=== PATIENT | male | born 1995 | race African-American/Black ===

== ENCOUNTER 2024-08-11 16:35 | Inpatient (IN) | payer OTHER, SELFPAY ==
[2024-08-11 10:47] VITALS: BP 151/94
--- NOTE | 2024-08-11 12:21 | ED.GENMED ---
History of Present Illness
General
Chief Complaint: Facial Problem
Time Seen by Provider: 08/11/24 12:11
History of Present Illness
History of Present Illness:
Patient is a 28-year-old man presenting to the emergency department with lip swelling for the past 3 days. Patient states that his right lower lip swelled up after eating shrimp noodles. Shortly after this swelling resolved. He then had chicken
noodles the next day which worsen the swelling. He went to the medical team at present and they started him on steroids and Benadryl. Since then the swelling has been worsening. He has noticed some drainage. He also notes that he had dental
surgery a week before the symptoms started appearing. He has been having some chills. No fevers. No problems speaking swallowing or changes with his speech.
Phy Exam
Physical Exam
Physical Exam:
GENERAL: in no acute distress
HEENT: normocephalic, extraocular movements intact, moist oral mucosa, dentition without any obvious hat the gums, right lower lip with significant swelling, dried fluid at the exterior lower lip, no obvious fluctuance, airway protected, no tongue
elevation
NECK: normal inspection
RESPIRATORY: no respiratory distress, clear to auscultation bilaterally
CARDIOVASCULAR: regular rate and rhythm
ABDOMEN/: soft, non-distended, non-tender to palpation, no rebound or guarding
EXTREMITIES: non-tender, no edema/swelling
NEUROLOGIC: awake and alert, moves all extremities
SKIN: warm
Course
Orders/Labs/Results
Orders:
Orders
08/11/24 12:18
CT Facial Bones W/ Iv Contrast Urgent
Comment:
Reason For Exam: right lower lip abscess
08/11/24 12:26
Basic Metabolic Panel Urgent
Complete Blood Count/With Diff Urgent
08/11/24 15:14
Ampicillin/Sulbactam 3 G [Unasyn] 3 gm 0.9% Sodium Chloride 100 ml [Nss] 100 ml IV NOW
08/11/24 15:19
Vancomycin [Vancocin] 1,500 mg 0.9% Sodium Chloride 500 ml [Nss] 500 ml IV NOW
Abnormal Lab Results
08/11/24
12:26
WBC 18.6 H 10^3/uL
(4.8-10.8)
RBC 4.11 L 10^6/uL
(4.70-6.10)
Hct 38.3 L %
(39.0-52.0)
MCH 32.8 H pg
(27.0-31.0)
RDW 10.7 L %
(11.5-14.5)
Abs Immat Gran (auto) 0.1 H 10^3/uL
(0-0.05)
Absolute Neuts (auto) 16.2 H 10^3/uL
(1.4-6.5)
Absolute Lymphs (auto) 1.1 L 10^3/uL
(1.2-3.4)
Absolute Monos (auto) 1.2 H 10^3/uL
(0.1-0.6)
Immature Gran % 0.7 H %
(0-0.5)
Neutrophils % 87.0 H %
(42.2-75.2)
Lymphocytes % 5.7 L %
(20.5-51.1)
Carbon Dioxide 31 H mmol/L
(22-30)
BUN 8 L mg/dl
(9-20)
Creatinine 0.6 L mg/dL
(0.7-1.3)
Glucose 124 H mg/dl
(70-99)
08/11/24 12:26
08/11/24 12:26
Vital Signs
Initial and Last Documented VS:
Initial Vital Signs
Temp Pulse Resp BP Pulse Ox
99.4 F 86 18 151/94 98
08/11/24 10:47 08/11/24 10:47 08/11/24 10:47 08/11/24 10:47 08/11/24 10:47
Last Documented Vital Signs
Temp Pulse Resp BP Pulse Ox
99.4 F 86 18 151/94 98
08/11/24 10:47 08/11/24 10:47 08/11/24 10:47 08/11/24 10:47 08/11/24 10:47
Procedures
Incision/Drainage/Joint Aspiration
Right Lip:
Anethesia: other (topical benzocaine)
Preparation: cleaned with alcohol wipe
Type of procedure: incise and drain
Nature of site: abscess
Description of abscess: less than 3cm
Loculations broken up: Yes
How much fluid was obtained?: small amount
Fluid description: purulent
Treatment: left open for drainage
MDM/Problems Addressed
Differential Diagnosis Includes:
Patient is a 28-year-old man presenting to the emergency department with concerns for right lower lip swelling for the past few days. On arrival patient's temperature was 99.4. On exam patient with significant swelling to the right lower lip with
some drainage. Concern for cellulitis/abscess. Dentition is intact. Will proceed with blood work and CT scan for further characterization. I did discuss with the dispensary from patient's correctional facility. They did not start him on any
antibiotics. They treated his lip swelling like an allergic reaction.
*Critical Care Note
Total Time (30-74mins, 75-104mins- exclusive of procedures): Not Applicable
Update Note
Update Note:
Labs to show leukocytosis. CT scan per my interpretation with an abscess of the right inferior lip. Per the official read there is a 2.5 x 2.2 x 1.8 cm abscess versus phlegmon with associated inflammatory changes. Given patient's white count and
the abscess we will admit patient for IV antibiotics with MRSA coverage. After discussion with patient he is amenable to drainage. Will use a needle aspiration first for best cosmetic outcomes and to avoid the vermilion border. I did attempt to
drain the abscess however only minimal fluid came out. I did convert using a scalpel with some success. It is slowly draining though not as much as expected. Will place warm compress and try to express more fluid
I discussed with hospitalist who excepted patient for admission. Also discussed with OMFS/plastic surgery for their recommendations.
On reevaluation is slowly draining. Hospitalist evaluated patient is in agreement with admission. They will follow-up with specialist for further evaluation.
ED Attending Note
-
Portions of this chart may have been created with voice recognition software.� Occasional wrong word or��sound alike� substitutions may have occurred due to the inherent limitations of voice recognition software.
Discharge Plan
Departure
Patient Disposition: Admit
Date of Disposition: 08/11/24
Time of Disposition: 15:08
Presentation/result/management discussed w/ accepting MD/DO: Hospitalist
Discharge Problem:
Infection of lip
Prescriptions:
No Action
acetaminophen [Tylenol] 325 mg Tablet
650 mg PO BIDPRN PRN (Reason: mild pain)
diphenhydramine HCl 50 mg Tablet
50 mg PO BID
thiamine HCl (vitamin B1) 100 mg Tablet
100 mg PO DAILY
hydroxyzine pamoate 50 mg Capsule
50 mg PO BID
famotidine [Pepcid] 20 mg Tablet
20 mg PO BID
prednisone 50 mg Tablet
50 mg PO DAILY
Rx Instructions:
take from 08/09/24-08/13/24
calcium carbonate [Tums] 200 mg calcium (500 mg) Tablet,Chewable
400 mg PO BIDPRN PRN (Reason: gerd)
ibuprofen [Advil] 200 mg Tablet
400 mg PO TIDPRN PRN (Reason: mild pain)
folic acid 1 mg Tablet
1 mg PO DAILY
buprenorphine HCl 8 mg Tablet, Sublingual
8 mg SUBLINGUAL DAILY
Referrals:
[facility] [Family Provider] -
Interventions
Interventions:
*Risk Screen - Suicide Last Done: 08/11/24 14:06
*General Assessment Last Done: 08/11/24 14:06
*Neglect/Abuse Screening Last Done: 08/11/24 14:06
*ED- Fall Risk Assessment Last Done: 08/11/24 14:06
*ED COVID-19 Vaccine History Last Done: 08/11/24 14:07
ED- Neurological Assessment Last Done: 08/11/24 12:37
ED-Skin Assessment Last Done: 08/11/24 12:37
Discharge Date and Time
Print Language: YI
[2024-08-11 13:00] LABS: % Basophils 0.3 % (0-2); % Immature Granulocytes 0.7 % (0-0.5); % Lymphocytes 5.7 % (20.5-51.1); % Monocytes 6.3 % (1.7-9.3); Absolute Basophils 0.1 10^3/uL (0-0.2); Absolute Immature Granulocytes 0.1 10^3/uL (0-0.05); Absolute Lymphocytes 1.1 10^3/uL (1.2-3.4); Absolute Monocytes 1.2 10^3/uL (0.1-0.6); Absolute Neutrophils 16.2 10^3/uL (1.4-6.5); Hematocrit 38.3 % (39.0-52.0); Hemoglobin 13.5 g/dL (13.0-18.0); Mean Corp Hgb Conc. 35.2 g/dL (33.0-37.0); Mean Corpuscular Hgb 32.8 pg (27.0-31.0); Mean Corpuscular Volume 93.2 fL (80.0-94.0); Nucleated Red Blood Cells % 0 % (-); Platelet Count 262 10^3/uL (130-400); Red Blood Cell Count 4.11 10^6/uL (4.70-6.10); Red Cell Dist. Width 10.7 % (11.5-14.5); White Blood Cell Count 18.6 10^3/uL (4.8-10.8)
[2024-08-11 13:07] LABS: Blood Urea Nitrogen 8 mg/dl (9-20); Calcium 9.6 mg/dl (8.4-10.2); Carbon Dioxide 31 mmol/L (22-30); Chloride 99 mmol/L (98-107); Glucose 124 mg/dl (70-99); Potassium 4.2 mmol/L (3.5-5.1); Sodium 139 mmol/L (135-145); eGFR > 60.00
[2024-08-11 15:11] VITALS: BMI 22.1
--- NOTE | 2024-08-11 15:16 | HPS.HSE ---
Family Physician
-
Family Physician: Facility [facility]
Chief Complaint
-
Lower Lip Swelling
History of Present Illness
Patient is a 28 y/o male past medical history of opioid use disorder who presents with lower lip swelling. Patient reports he had a tooth extracted from his left upper about a week ago. He reports initially doing well until he developed
significant swelling of his lower lip three days ago. He was seen by medical at the alf who started him on prednisone for possible allergic reaction. He presents today with worsening swelling of the lower lip. He reports significant sweats but
denies any fevers.
Medical History
Past Medical History
Past Medical History: Reports Other
Additional Past Medical History:
Opioid Use Disorder
Past Surgical History: Reports Other
Additional Past Surgical History:
Dental
Social History
Tobacco: Non-smoker
Alcohol: Occasional
Drug: Other (Reports opioid use prior to incarceration, no IVDA)
Living: Senior Care
Family History
Family History: Not pertinent
Allergies / Home Medications
Allergies reflects when Allergies were last updated in [employer].
Home Medications with original date entered in [employer]
Allergy/Medication List:
Allergies
Allergy/AdvReac Type Severity Reaction Status Date / Time
No Known Allergies Allergy Unverified 08/11/24 10:46
Home Medications
acetaminophen 325 mg tablet (Tylenol) 650 mg PO BIDPRN PRN mild pain 08/11/24
buprenorphine HCl 8 mg sublingual tablet 8 mg sublingual DAILY 08/11/24
calcium carbonate (Tums) 400 mg PO BIDPRN PRN gerd 08/11/24
diphenhydramine HCl 50 mg tablet 50 mg PO BID 08/11/24
famotidine 20 mg tablet (Pepcid) 20 mg PO BID 08/11/24
folic acid 1 mg tablet 1 mg PO DAILY 08/11/24
hydroxyzine pamoate 50 mg capsule 50 mg PO BID 08/11/24
ibuprofen 200 mg tablet (Advil) 400 mg PO TIDPRN PRN mild pain 08/11/24
prednisone 50 mg tablet 50 mg PO DAILY 08/11/24
thiamine HCl (vitamin B1) 100 mg tablet 100 mg PO DAILY 08/11/24
Review of Systems
-
A 12 point ROS was completed and negative except as noted: Yes
Constitutional: Reports Night Sweats
Respiratory: Denies Cough or Trouble Breathing
Cardiac: Denies Chest Pain or Palpitations
Physical Exam
Vital Signs
Vital Signs
Temp Pulse Resp BP Pulse Ox
99.4 F 86 18 151/94 98
08/11/24 10:47 08/11/24 10:47 08/11/24 10:47 08/11/24 10:47 08/11/24 10:47
Physical Exam
General: Other (Appears in pain; Diaphoresis with beads of sweat noted on the brow; Difficulty speaking due to significant lower lip swelling)
HEENT: Anicteric, Moist mucous membranes and Other (Significant lower lip swelling; Protecting airway)
Respiratory: Clear and Non Labored Respirations
Cardiac: S1/S2 and Regular Rhythm
GI: Soft and Non Tender
Rectal: Deferred by Provider
Musculoskeletal: No Clubbing, No Cyanosis and No Edema
Skin: Warm and Dry
Neuro: Awake, Alert, Oriented and Nonfocal/grossly intact
Psych: Calm
Laboratory Results
-
08/11/24 12:26
08/11/24 12:[address] Scan:
Pronounced thickening and inflammatory change involving the inferior lip with subtle area of rim enhancement within the right midline measuring 2.5 x 2.2 x 1.8 cm suspicious for abscess versus phlegmon.
Data Reviewed
-
Lab Data: Labs Reviewed by me
Impression/Plan
-
Lower Lip Infection with Abscess
-Consult Plastic Surgery
-Consult Infectious Disease
-Continue Vancomycin and Unasyn
-Continue Tylenol and Toradol prn for pain
Opioid Use Disorder
-Continue buprenorphine
DVT Proph: SCDs
Code Status: Full Code
--- NOTE | 2024-08-11 16:13 | W.PN.UPDATE ---
Update Note
Progress Note Update
This is an addendum to the H&P written by Zena Flor on 08/11/2024. Patient seen and examined independently with PA.
28-year-old male presenting from correctional facility history of Percocet use, with right lower lip swelling for the past few days with discharge. Treated as an allergic reaction with prednisone/Benadryl/Pepcid at the facility.
Labs show leukocytosis. CT facial bones shows pronounced thickening and inflammatory change involving the inferior lip with subtle area of enhancement in the right midline measuring 2.5 x 2.2 x 1.8 cm suspicious for abscess versus phlegmon. There
is moderate mucosal thickening within the left maxillary sinus. Attempted to be drained in the ER with some relief.
Vancomycin and Unasyn started. Tylenol and Toradol for pain. Plastic surgery to see him tomorrow. ID consulted.
[2024-08-11] MEDS: UNASYN IV ×2 (16:36→22:18)
[2024-08-11 16:38] VITALS: BP 150/108
[2024-08-11] MEDS: VANCOCIN 530 MG IV (18:06)
[2024-08-11 20:14] VITALS: BP 161/99; BMI 21.5
--- NOTE | 2024-08-11 20:25 | PHA.VAN.IN ---
Assessment
- Assessment
Renal Function: Unknown baseline
Concomitant Antimicrobials: UNASYN
- Previous Dosing Experience
Previous Regimen: NONE
AUC Dosing Plan
- Dosing Variables
Dosing Weight (kg): 69.8
Dosing CrCl (ml/min): 125
Vd coefficient (L/kg): 0.7
- Empiric Dosing
Initial / Loading Dose: 1500MG
Maintenance Regimen: 750MG IV Q8H
Estimated AUC (mcg*h/mL): 449
Estimated Peak (mcg*h/mL): 26.5
Estimated Trough (mcg/ml): 12.4
Estimated Half Life (H): 6.4
Pharmacokinetics Vancomycin I
- -
Patient Age: 28
Patient Sex: Male
Vancomycin Day #: 1
Indication: Other (LOWER LIP INFECTION WITH ABSCESS)
Requesting Provider: SUKHDEV
Height / Weight:
Height 5 ft 10 in
Actual Weight 67.812 kg
Pertinent Past Medical History: OPIOD USE DISORDER
- Vital Signs / Lab Results
Temp Pulse Resp BP Pulse Ox
97.8 F 90 18 161/99 99
08/11/24 20:14 08/11/24 20:14 08/11/24 20:14 08/11/24 20:14 08/11/24 20:14
Lab Results - Hematology
08/11/24
12:26
WBC 18.6 H
Lab Results - Chemistry
08/11/24
12:26
BUN 8 L
Creatinine 0.6 L
[2024-08-11] MEDS: TORADOL 30 MG IV (22:17)
[2024-08-11] MEDS: NSS 1000 IV (22:18)
[2024-08-11] MEDS: ATARAX 50 MG PO (22:18)
[2024-08-11] MEDS: PEPCID 20 MG PO (22:19)
[2024-08-11 23:05] VITALS: BP 150/72
[2024-08-12] MEDS: UNASYN IV ×2 (03:42→10:29)
[2024-08-12] MEDS: VANCOCIN 150 IV ×3 (05:43→20:51)
[2024-08-12 07:33] VITALS: BP 168/112
[2024-08-12 08:05] LABS: Hematocrit 36.5 % (39.0-52.0); Hemoglobin 12.8 g/dL (13.0-18.0); Mean Corp Hgb Conc. 35.1 g/dL (33.0-37.0); Mean Corpuscular Hgb 32.4 pg (27.0-31.0); Mean Corpuscular Volume 92.4 fL (80.0-94.0); Mean Platelet Volume 9.9 fL (7.4-10.4); Platelet Count 246 10^3/uL (130-400); Red Blood Cell Count 3.95 10^6/uL (4.70-6.10); Red Cell Dist. Width 10.6 % (11.5-14.5); White Blood Cell Count 15.1 10^3/uL (4.8-10.8)
[2024-08-12] MEDS: ATARAX 50 MG PO ×2 (08:26→20:50)
[2024-08-12] MEDS: SUBUTEX 8 MG SL (08:26)
[2024-08-12] MEDS: PEPCID 20 MG PO ×2 (08:26→20:51)
[2024-08-12 08:54] LABS: Blood Urea Nitrogen 8 mg/dl (9-20); Calcium 9.1 mg/dl (8.4-10.2); Carbon Dioxide 27 mmol/L (22-30); Chloride 100 mmol/L (98-107); Estimated Creatinine Clearance > 125 ml/min; Glucose 108 mg/dl (70-99); Potassium 3.8 mmol/L (3.5-5.1); Sodium 138 mmol/L (135-145); eGFR > 60.00
[2024-08-12 10:25] VITALS: BP 142/92
[2024-08-12] MEDS: TORADOL 30 MG IV ×2 (10:29→23:27)
[2024-08-12] MEDS: NSS 1000 IV (10:33)
--- NOTE | 2024-08-12 11:19 | CON.ID ---
Consultation
-
Date/Time Consultation Requested: August 11, 2024 1600
Date/Time Consultation Performed: August 12, 2024 1125
Requesting Provider: Dr. Rashid Cordova
Performing Provider: Dr. Cristal Aleman
Reason for Consultation: Lip abscess
Chief Complaint / Past History
Chief Complaint
Lip infection
History of Present Illness
28-year-old male currently incarcerated who was sent to the ER August 11 due to worsening lip swelling with drainage. He reports about a week ago he had left upper broken molar tooth extraction in senior care. The tooth was also infected and he did get
antibiotic at that time. Procedure was about an hour. Then on Sunday, August 09, he noted a small pimple-like lesion on his right lower lip. He tried to pop it. Afterwards his lip became very swollen and lesion enlarged. Nursing Home put him on
prednisone for possible allergic reaction. However the abscess continues to drain and therefore he came to the hospital. He was started on vancomycin and Unasyn. CT of the face shows abscess versus phlegmon right inferior lip. He denies
history of MRSA. He has been in senior care since July 01. No fevers or chills.
Past History
Additional Past Medical History:
Opioid use disorder
Additional Past Surgical History:
Tooth extraction
Allergy History:
No Known Allergies Allergy (Unverified 08/11/24 10:46)
Medications Reviewed: Yes
Current Antibiotics:
Vancomycin
Unasyn
Social History
Tobacco: Non-Smoker
Alcohol: None
Drug: Other (opioid)
Living: Nursing Home
Family History
Family History: Not Pertinent
Review of Systems
Review of Systems
General: Negative Fever, Chills or Change in Appetite
HEENT: Negative Sinus Problems or Headache
Cardiovascular: Negative Chest Pain or Dyspnea
Respiratory: Negative Dyspnea or Cough
Gasteroenterology: Negative Nausea, Vomiting or Diarrhea
Genital / Urological: Negative Dysuria or Flank Pain
Endocrine: Negative Weakness
Neurological: Negative Dizziness
All systems: All other systems were reviewed and were negative
Vital Signs
Temp Pulse Resp BP Pulse Ox
98.3 F 83 18 142/92 96
08/12/24 07:33 08/12/24 10:25 08/12/24 07:33 08/12/24 10:25 08/12/24 10:25
Physical Exam
Physical Exam
Constitutional: No Acute Distress and Comfortable
Eyes: No Conjunctival Hemorrhage and Sclera Anicteric
Pharynx: Benign
Oral: Other (Lower lip significant edema, especially on right with extenstion to mandible; + abscess on right lip and below lip with purulent drainage)
Lymph Nodes: Lymphadenopathy (right submandibular)
Cardiovascular: Regular Rate and S1/S2
Pulmonary: Clear
Gastrointestinal: Soft, Non Tender, Non Distended and Normal Bowel Sounds
Genito-Urinary: Negative CVA Tenderness
Extremities: Negative Edema
Neurological: AO x 3
Psychological: Calm
Lab / Diagnostic Study Results
08/12/24 07:31
08/12/24 07:31
Abs Immat Gran (auto) 0.1 10^3/uL (0-0.05) H 08/11/24 12:26
Absolute Neuts (auto) 16.2 10^3/uL (1.4-6.5) H 08/11/24 12:26
Absolute Lymphs (auto) 1.1 10^3/uL (1.2-3.4) L 08/11/24 12:26
Absolute Monos (auto) 1.2 10^3/uL (0.1-0.6) H 08/11/24 12:26
Absolute Basos (auto) 0.1 10^3/uL (0-0.2) 08/11/24 12:26
Immature Gran % 0.7 % (0-0.5) H 08/11/24 12:26
Neutrophils % 87.0 % (42.2-75.2) H 08/11/24 12:26
Lymphocytes % 5.7 % (20.5-51.1) L 08/11/24 12:
Monocytes % 6.3 % (1.7-9.3) 08/11/24 12:
Eosinophils % 0.0 % (0-6) 08/11/24 12:
Basophils % 0.3 % (0-2) 08/11/24 12:
Microbiology Results
Micro:
08/11/24 17:12 MRSA Screen - Pending
Nose
08/11/24 CT facial bones: Pronounced thickening and inflammatory change involving the inferior lip with subtle area of rim enhancement within the right midline measuring 2.5 x 2.2 x 1.8 cm suspicious for abscess versus phlegmon.
Assessment / Plan
# Acute right inferior lip abscess
# Leukocytosis
# Incarcerated
- Swabbed drainage for culture.
- Apply warm compress.
- Plastic to evaluate for drainage.
- Suspect MRSA vs MSSA. Continue Vancomycin.
- DC Unasyn.
- Trend wbc.
Care Review
Plan reviewed with: Physician (Dr. Cordova. )
--- NOTE | 2024-08-12 12:14 | CM ---
Patient seen w/ guards at bedside. Patient is a 28 y/o male past medical history of opioid use disorder who presents with lower lip swelling.
CM will follow for any d/c needs.
[facility]
Report: [phone]

Plan: Return to [facility] when stable
--- NOTE | 2024-08-12 14:48 | CON.PS ---
Medical History
-
Chief Complaint: Lip abscess
History of Present Illness:
28-year-old male, incarcerated, presents with multiple day history of lip swelling. Now associated with purulent drainage. I&D was performed in the ED. He reports continued drainage.
Allergies / Home Medications
Allergy/AdvReac Type Severity Reaction Status Date / Time
No Known Allergies Allergy Unverified 08/11/24 10:46
�Medication �Instructions �Recorded �Confirmed �Type
acetaminophen 325 mg tablet 650 mg PO BIDPRN PRN mild pain 08/11/24 08/11/24 History
(Tylenol)
buprenorphine HCl 8 mg sublingual 8 mg sublingual DAILY Neurological 08/11/24 08/11/24 History
tablet Condition
calcium carbonate (Tums) 400 mg PO BIDPRN PRN gerd 08/11/24 08/11/24 History
diphenhydramine HCl 50 mg tablet 50 mg PO BID 08/11/24 08/11/24 History
famotidine 20 mg tablet (Pepcid) 20 mg PO BID Gastrointestinal Issue 08/11/24 08/11/24 History
folic acid 1 mg tablet 1 mg PO DAILY Supplement 08/11/24 08/11/24 History
hydroxyzine pamoate 50 mg capsule 50 mg PO BID 08/11/24 08/11/24 History
ibuprofen 200 mg tablet (Advil) 400 mg PO TIDPRN PRN mild pain 08/11/24 08/11/24 History
prednisone 50 mg tablet 50 mg PO DAILY 08/11/24 08/11/24 History
thiamine HCl (vitamin B1) 100 mg 100 mg PO DAILY Supplement 08/11/24 08/11/24 History
tablet
Physical Exam
Vital Signs
Temp 98.3 F 08/12/24 07:33
Temp route: Oral 08/12/24 07:33
Pulse 83 08/12/24 10:25
Resp Rate 18 08/12/24 07:33
Blood pressure 142/92 08/12/24 10:25
Blood pressure extremity used: Left upper arm 08/12/24 07:33
Position: Sitting 08/12/24 07:33
MAP 119 08/11/24 16:38
SaO2 96 08/12/24 10:25
Oxygen Mode of Delivery Room air 08/12/24 07:33
Can the patient verbally communicate their pain? Yes 08/12/24 11:29
Pain scale rating: Asleep 08/12/24 11:29
Actual Weight 149 lb 8 oz 08/11/24 20:14
Body Mass Index (BMI) 21.5 08/11/24 20:14
Physical exam:
No acute distress
No increased work of breathing
Edematous lower lip
Multiple perforations through the oral mucosa and facial skin at sites of drainage
Cavitated lesion
Lab Results
08/12/24 07:31
08/12/24 07:31
Assessment / Plan
-
Lip abscess status post I&D with continued drainage
With the patient's consent I recommended exploration of the abscess cavity with a Q-tip to ensure the septae were broken. I also recommended repeat culture for aerobic and anaerobic bacteria. He provided consent accordingly. The procedure was
performed without complication.
Continue IV antibiotics until speciation
Wound is draining appropriately, anticipate slow but eventual secondary healing
Data Reviewed
-
CT Scan: Image Personally Visualized and interpreted
[2024-08-12 15:34] VITALS: BP 140/86
--- NOTE | 2024-08-12 15:58 | W.PN.HOSP.TC ---
Today's Communication/Plan
-
Follow abscess cultures.
Continue vancomycin
Assessment / Plan
Assessment / Plan
Impression/plan
Lower lip abscess
Status post I&D in the emergency room.
Recent tooth extraction
Suspected MRSA versus MSSA.
Antibiotics consolidated to vancomycin (Unasyn discontinued)
Cultures pending.
Anticipated Discharge: 24 - 48 hours
Subjective/Interval History
-
Date of Service: August 12, 2024
Objective Data
-
Labs:
Laboratory Results
08/12/24
07:31
WBC 15.1 H
Hgb 12.8 L
Hct 36.5 L
Plt Count 246
Sodium 138
Potassium 3.8
Chloride 100
Carbon Dioxide 27
BUN 8 L
Creatinine 0.6 L
Glucose 108 H
Calcium 9.1
Vital Signs:
Vital Signs
Temp Pulse Resp BP Pulse Ox
98.3 F 89 18 140/86 100
08/12/24 15:34 08/12/24 15:34 08/12/24 15:34 08/12/24 15:34 08/12/24 15:34
I&O
08/11/24 08/12/24 08/13/24
06:59 06:59 06:59
Intake Total 480 / 480
Balance 480 / 480
Physical Exam
-
General: Well Developed and No Apparent Distress
HEENT: Normocephalic, Atraumatic and Moist Mucous Membranes
Respiratory: Clear to Auscultation
Cardiac: Regular Rhythm and S1/S2; Negative Murmur, Rub or Gallop
GI: Soft, Nontender, Nondistended and Normal Bowel Sounds; Negative Organomegaly
Rectal: Deferred by Provider
Musculoskeletal: No Clubbing, No Cyanosis and No Edema
Skin: Negative Rash
Neuro: Nonfocal/Grossly Intact
--- NOTE | 2024-08-12 16:27 | PHA.VAN.FU ---
Vancomycin Assessment / Plan
- Assessment
Renal Function: Stable (0.6)
WBC's are: Trending Down (18.6->15.1)
In the past 24 hrs, patient has been: Afebrile
- Dosing Plan
Continue: Vanco 750mg Q8H
- Monitoring Plan
No level(s) ordered at this time: Consider in the next few days
- Follow Up
Pharmacy will continue to follow.
Vancomycin Follow UP
- -
Patient Age: 28
Patient Sex: Male
Vancomycin Day #: 2
Indication: Other (LOWER LIP INFECTION WITH ABSCESS)
Requesting Provider: SUKHDEV
Height / Weight:
Height 5 ft 10 in
Actual Weight 67.812 kg
Pertinent Past Medical History: OPIOD USE DISORDER
- Vital Signs / Lab Results
Temp Pulse Resp BP Pulse Ox
98.3 F 89 18 140/86 100
08/12/24 15:34 08/12/24 15:34 08/12/24 15:34 08/12/24 15:34 08/12/24 15:34
Lab Results - Hematology
08/11/24 08/12/24
12:26 07:31
WBC 18.6 H 15.1 H
Lab Results - Chemistry
08/11/24 08/12/24
12:26 07:31
BUN 8 L 8 L
Creatinine 0.6 L 0.6 L
Estimated Creat Clear > 125
Microbiology Results
08/12/24 13:22 Gram Stain - Preliminary
Abscess
[2024-08-12 23:55] VITALS: BP 161/108
[2024-08-13 00:31] VITALS: BP 135/83
[2024-08-13] MEDS: VANCOCIN 150 IV ×3 (05:52→21:45)
[2024-08-13] MEDS: NSS 1000 IV (05:54)
[2024-08-13] MEDS: TYLENOL 650 MG PO (05:59)
[2024-08-13] MEDS: PEPCID 20 MG PO ×2 (07:41→20:37)
[2024-08-13 07:42] VITALS: BP 135/87
[2024-08-13] MEDS: TORADOL IV (07:42)
[2024-08-13] MEDS: SUBUTEX 8 MG SL (07:42)
[2024-08-13] MEDS: ATARAX 50 MG PO ×2 (07:42→20:37)
--- NOTE | 2024-08-13 08:26 | PTCARENOTE ---
Patient is refusing morning medications, accuchecks, lab work, and vitals. MD Grace notified. will continue to monitor.
--- NOTE | 2024-08-13 08:56 | PHA.VAN.FU ---
Vancomycin Assessment / Plan
- Assessment
Renal Function: Stable (0.6)
WBC's are: Stable (No new labs)
In the past 24 hrs, patient has been: Afebrile
- Dosing Plan
Continue: Vanco 750mg Q8H
- Monitoring Plan
Peak Level: 08/14/24 0100
Trough Level: 08/14/24 0530
- Follow Up
Pharmacy will continue to follow.
Vancomycin Follow UP
- -
Patient Age: 28
Patient Sex: Male
Vancomycin Day #: 2
Indication: Other (LOWER LIP INFECTION WITH ABSCESS)
Requesting Provider: SUKHDEV
Height / Weight:
Height 5 ft 10 in
Actual Weight 67.812 kg
Pertinent Past Medical History: OPIOD USE DISORDER
- Vital Signs / Lab Results
Temp Pulse Resp BP Pulse Ox
98.3 F 67 18 135/87 99
08/13/24 07:42 08/13/24 07:42 08/13/24 07:42 08/13/24 07:42 08/13/24 07:42
Lab Results - Hematology
08/11/24 08/12/24
12:26 07:31
WBC 18.6 H 15.1 H
Lab Results - Chemistry
08/11/24 08/12/24
12:26 07:31
BUN 8 L 8 L
Creatinine 0.6 L 0.6 L
Estimated Creat Clear > 125
Microbiology Results
08/11/24 17:12 MRSA Screen - Final
Nose Staph aureus MRSA
08/12/24 13:22 Gram Stain - Preliminary
Abscess
[2024-08-13] MEDS: TORADOL 30 MG IV ×2 (12:08→21:46)
--- NOTE | 2024-08-13 13:27 | W.PN.ID1 ---
Date of Service
Date of Service: August 13, 2024
Today's Communication
Continue IV Vancomycin.
Assessment / Plan
# Acute right inferior lip abscess with cellulitis
# Leukocytosis - trending down
# Incarcerated
- Swabbed culture + MRSA
- 08/12 Plastics drained abscess. Cx pending
- Apply warm compress.
- Continue Vancomycin (d3).
- Trend wbc.
Chief Complaint
-: Cellulitis
Subjective / Review of Systems
Lip abscess continues to drain.
Vital Signs / Physical Exam
Vital Signs
Vital Signs
Temp Pulse Resp BP Pulse Ox
98.3 F 67 18 135/87 99
08/13/24 07:42 08/13/24 07:42 08/13/24 07:42 08/13/24 07:42 08/13/24 07:42
Physical Exam
Constitutional: No Acute Distress
Oropharyngeal: Other (Lower lip + edema R>L, abscess seropurulent drainage)
Cardiovascular: Regular Rate and S1/S2
Pulmonary: Clear
Gastrointestinal: Soft, Non Tender, Non Distended and Normal Bowel Sounds
Neurological: AO x 3
Objective Data
Lab Data
Lab Results
08/12/24 07:31
08/12/24 07:31
Estimated Creat Clear > 125 ml/min 08/12/24 07:31
Most recent labs reviewed.
Micro Results:
08/12/24 13:22 Wound Culture - Preliminary
Abscess Staph aureus MRSA
Gram Stain - Preliminary
08/12/24 17:01 Anaerobic Culture - Preliminary
Abscess Culture pending. Anaerobic cultures are examined after 3
days incubation. Additional information to follow.
08/11/24 17:12 MRSA Screen - Final
Nose Staph aureus MRSA
08/11/24 CT facial bones: Pronounced thickening and inflammatory change involving the inferior lip with subtle area of rim enhancement within the right midline measuring 2.5 x 2.2 x 1.8 cm suspicious for abscess versus phlegmon.
[2024-08-13 14:56] VITALS: BP 134/85
--- NOTE | 2024-08-13 15:07 | CM ---
CM reviewed chart, patient remains on IV antibiotics. CM will continue to follow for all discharge planning needs.
Plan: Return to [facility] when stable
[facility]
Report: [phone]
--- NOTE | 2024-08-13 15:33 | W.PN.HOSP.TC ---
Today's Communication/Plan
-
Continue vancomycin
Assessment / Plan
Assessment / Plan
Impression/plan
Lower lip abscess
Status post I&D in the emergency room.
Recent tooth extraction
Wound culture with MRSA.
Antibiotics consolidated to vancomycin (Unasyn discontinued)
Anticipated Discharge: 24 - 48 hours
Subjective/Interval History
-
Date of Service: August 13, 2024
Objective Data
-
Vital Signs:
Vital Signs
Temp Pulse Resp BP Pulse Ox
97.9 F 73 18 134/85 100
08/13/24 14:56 08/13/24 14:56 08/13/24 14:56 08/13/24 14:56 08/13/24 14:56
I&O
08/12/24 08/13/24 08/14/24
06:59 06:59 06:59
Intake Total 480 / 480 2460 / 2460
Balance 480 / 480 2460 / 2460
Physical Exam
-
General: Well Developed and No Apparent Distress
HEENT: Normocephalic, Atraumatic and Moist Mucous Membranes
Respiratory: Clear to Auscultation
Cardiac: Regular Rhythm and S1/S2; Negative Murmur, Rub or Gallop
GI: Soft, Nontender, Nondistended and Normal Bowel Sounds; Negative Organomegaly
Rectal: Deferred by Provider
Musculoskeletal: No Clubbing, No Cyanosis and No Edema
Skin: Negative Rash
Neuro: Nonfocal/Grossly Intact
[2024-08-13] MEDS: NSS IV (20:36)
[2024-08-13 23:19] VITALS: BP 128/84
[2024-08-14 01:41] LABS: Vancomycin Peak 12.7 ug/ml (18-26)
--- NOTE | 2024-08-14 03:31 | DOWNTIME ---
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 Downtime documentation of patient's care, including medication administrations, has been reconciled in the electronic record per guidelines. Refer to the
patient's paper chart under the miscellaneous tab to see printed paper medication records and downtime forms.
[2024-08-14 07:17] VITALS: BP 138/89
[2024-08-14] MEDS: VANCOCIN 150 IV (09:02)
[2024-08-14] MEDS: SUBUTEX 8 MG SL (09:02)
[2024-08-14] MEDS: ATARAX 50 MG PO (09:03)
[2024-08-14] MEDS: PEPCID 20 MG PO (09:04)
[2024-08-14 09:45] LABS: % Basophils 0.6 % (0-2); % Eosinophils 3.6 % (0-6); % Immature Granulocytes 0.6 % (0-0.5); % Lymphocytes 29.3 % (20.5-51.1); % Monocytes 12.3 % (1.7-9.3); % Neutrophils 53.6 % (42.2-75.2); Absolute Eosinophils 0.3 10^3/uL (0-0.7); Absolute Monocytes 0.9 10^3/uL (0.1-0.6); Absolute Neutrophils 3.7 10^3/uL (1.4-6.5); Hematocrit 34.8 % (39.0-52.0); Hemoglobin 12.2 g/dL (13.0-18.0); Mean Corp Hgb Conc. 35.1 g/dL (33.0-37.0); Mean Corpuscular Hgb 32.1 pg (27.0-31.0); Mean Corpuscular Volume 91.6 fL (80.0-94.0); Mean Platelet Volume 9.4 fL (7.4-10.4); Nucleated Red Blood Cells % 0 % (-); Platelet Count 310 10^3/uL (130-400); Red Cell Dist. Width 10.8 % (11.5-14.5); White Blood Cell Count 6.9 10^3/uL (4.8-10.8)
--- NOTE | 2024-08-14 09:46 | W.PN.ID1 ---
Date of Service
Date of Service: August 14, 2024
Today's Communication
- If dc today, can transition to doxycycline 100mg po bid through 08/20/24.
- Continue apply warm compress.
Assessment / Plan
# Acute right inferior lip abscess with cellulitis
# Leukocytosis - resolved
# Incarcerated
- Swabbed culture + MRSA
- 08/12 Plastics drained abscess.
- Continue Vancomycin (d4).
- If dc today, can transition to doxycycline 100mg po bid through 08/20/24.
- Continue apply warm compress.
Chief Complaint
-: Cellulitis
Subjective / Review of Systems
Lip swelling better. Abscess drained out a lot last night. Today minimal drainage.
Vital Signs / Physical Exam
Vital Signs
Vital Signs
Temp Pulse Resp BP Pulse Ox
97.9 F 68 18 138/89 100
08/14/24 07:17 08/14/24 07:17 08/14/24 07:17 08/14/24 07:17 08/14/24 07:17
Physical Exam
Constitutional: No Acute Distress
Oropharyngeal: Other (Lower lip edema decreasing, abscess smaller, right mandible edema resolving)
Cardiovascular: Regular Rate and S1/S2
Pulmonary: Clear
Gastrointestinal: Soft, Non Tender, Non Distended and Normal Bowel Sounds
Neurological: AO x 3
Objective Data
Lab Data
Lab Results
08/14/24 07:16
Estimated Creat Clear > 125 ml/min 08/12/24 07:31
Most recent labs reviewed.
Micro Results:
08/12/24 13:22 Wound Culture - Preliminary
Abscess Staph aureus MRSA
Gram Stain - Preliminary
08/12/24 17:01 Anaerobic Culture - Preliminary
Abscess Culture pending. Anaerobic cultures are examined after 3
days incubation. Additional information to follow.
08/11/24 17:12 MRSA Screen - Final
Nose Staph aureus MRSA
08/11/24 CT facial bones: Pronounced thickening and inflammatory change involving the inferior lip with subtle area of rim enhancement within the right midline measuring 2.5 x 2.2 x 1.8 cm suspicious for abscess versus phlegmon.
Care Review
Plan reviewed with: Physician (Dr. Cordova)
[2024-08-14 10:10] LABS: Blood Urea Nitrogen 8 mg/dl (9-20); Carbon Dioxide 28 mmol/L (22-30); Chloride 102 mmol/L (98-107); Estimated Creatinine Clearance > 125 ml/min; Glucose 90 mg/dl (70-99); Potassium 4.2 mmol/L (3.5-5.1); Sodium 140 mmol/L (135-145); eGFR > 60.00
[2024-08-14 10:43] LABS: Vancomycin Trough 5.9 ug/ml (5-20)
--- NOTE | 2024-08-14 11:04 | CM ---
CM reviewed chart, patient remains on IV antibiotics, per ID, transition to oral if d/c. CM will continue to follow for all discharge planning needs.
Plan: Return to [facility] when stable
[facility]
Report: [phone]
--- NOTE | 2024-08-14 11:12 | PHA.VAN.FU ---
Vancomycin Assessment / Plan
- Assessment
Renal Function: Stable
WBC's are: WNL
In the past 24 hrs, patient has been: Afebrile
- Assessment - Therapeutic Drug Monitoring
Extrapolated Cmax (mcg/mL): 17.4
Peak level was drawn: Appropriately (drawn ~2.5H after end of previous infusion)
Extrapolated Cmin (mcg/mL): 7.2
Trough Drawn: Appropriately
Levels were drawn: At steady state (levels drawn after 6th maintenance dose)
Calculated AUC (mcg*h/mL): 278
Calculated ke: 0.1267
Calculated half life (H): 5.5
Calculated Vd (L): 64 (~0.9 L/kg)
Calculated Vanc CL (ml/min): 135
- Dosing Plan
Adjust Regimen to: Vanc 1000mg Q8H starting at 1400
New Regimen Predicts: AUC (400), Peak (24.6), Trough (10.2)
- Monitoring Plan
No level(s) ordered at this time: consider levels in next few days
- Follow Up
Pharmacy will continue to follow.
Vancomycin Follow UP
- -
Patient Age: 28
Patient Sex: Male
Vancomycin Day #: 3
Indication: Other
Requesting Provider: Melissa Odom / Lindsey
Pertinent Antimicrobial Allergies:
NKDA
Height / Weight:
Height 5 ft 10 in
Actual Weight 67.812 kg
Pertinent Past Medical History: JESI
- Vital Signs / Lab Results
Temp Pulse Resp BP Pulse Ox
97.9 F 68 18 138/89 100
08/14/24 07:17 08/14/24 07:17 08/14/24 07:17 08/14/24 07:17 08/14/24 07:17
Lab Results - Hematology
08/11/24 08/12/24 08/14/24
12:26 07:31 07:16
WBC 18.6 H 15.1 H 6.9
Lab Results - Chemistry
08/11/24 08/12/24 08/14/24
12:26 07:31 07:16
BUN 8 L 8 L 8 L
Creatinine 0.6 L 0.6 L 0.6 L
Estimated Creat Clear > 125 > 125
Microbiology Results
08/12/24 13:22 Wound Culture - Preliminary
Abscess Staph aureus MRSA
Gram Stain - Preliminary
08/12/24 17:01 Anaerobic Culture - Preliminary
Abscess Culture pending. Anaerobic cultures are examined after 3
days incubation. Additional information to follow.
08/11/24 17:12 MRSA Screen - Final
Nose Staph aureus MRSA
Therapeutic Drug Monitoring
Vancomycin Peak 12.7 ug/ml (18-26) L 08/14/24 01:13
Vancomycin Trough 5.9 ug/ml (5-20) 08/14/24 07:16
[2024-08-14] MEDS: VANCOCIN 200 IV (14:50)
[2024-08-14] MEDS: NICODERM TRANSDERMAL 14 MG TRANSDERM (14:52)
--- NOTE | 2024-08-14 15:21 | W.DS.TRANS ---
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
-
Discharge Instructions:
Discharge Diagnosis/Procedures Facial cellulites with abscess
Diet Regular
Instructions:
Stand-Alone Forms:
Changes to Home Medications: Yes
Discharge Medications:
DC Medications w/original date entered in [employer]
acetaminophen 325 mg tablet (Tylenol) 650 mg PO BIDPRN PRN mild pain 08/11/24
buprenorphine HCl 8 mg sublingual tablet 8 mg sublingual DAILY Neurological Condition 08/11/24
calcium carbonate (Tums) 400 mg PO BIDPRN PRN gerd 08/11/24
diphenhydramine HCl 50 mg tablet 50 mg PO BID 08/11/24
famotidine 20 mg tablet (Pepcid) 20 mg PO BID Gastrointestinal Issue 08/11/24
folic acid 1 mg tablet 1 mg PO DAILY Supplement 08/11/24
hydroxyzine pamoate 50 mg capsule 50 mg PO BID 08/11/24
ibuprofen 200 mg tablet (Advil) 400 mg PO TIDPRN PRN mild pain 08/11/24
thiamine HCl (vitamin B1) 100 mg tablet 100 mg PO DAILY Supplement 08/11/24
doxycycline monohydrate 100 mg capsule 100 mg PO BID #12 caps 08/14/24
nicotine 14 mg/24 hr daily transdermal patch 14 mg transdermal DAILY #5 ea 08/14/24
Home Medication Changes
Antibiotics through 08/20/2024
Pending Results: No
[2024-08-14 15:35] VITALS: BP 148/90
== END 2024-08-14 18:38 | DRG 159 ==
LOC: 4 WEST ACU 16:35
PROVIDERS: Physician Assistant Medical; ADMITTING PHYSICIAN Hospitalist; ATTENDING PHYSICIAN Internal Medicine; CONSULT PHYSICIAN Internal Medicine Infectious Disease; CONSULT PHYSICIAN Surgery Plastic and Reconstructive Surgery; EMERGENCY PHYSICIAN Student in an Organized Health Care Education/Training Program
PROC: 0C913ZZ Drainage of Lower Lip, Percutaneous Approach (ICD-10-PCS; 2024-08-11)
DX: K12.2 Cellulitis and abscess of mouth (principal); F11.10 Opioid abuse, uncomplicated; K21.9 Gastro-esophageal reflux disease without esophagitis
CPT/HCPCS: 10060; 70487; 80048; 80202; 85025; 85027; 87070; 87075; 87147; 87186; 87205; 99285; Q9967